=== PATIENT | male | born 1985 | race Caucasian/White ===

== ENCOUNTER 2019-04-08 16:27 | Emergency (ER) | payer BC ==
[2019-04-08] MEDS ORDERED: oxyCODONE TAB* 5 MG TAB PO ONE (21:18)
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
== END 2019-04-08 23:16 | disposition home or self-care (01) ==
LOC: ED 16:27
DX: M79.661 Pain in right lower leg (principal); M79.662 Pain in left lower leg; M25.572 Pain in left ankle and joints of left foot; M25.571 Pain in right ankle and joints of right foot
CPT/HCPCS: 99283; A9270-GY

== ENCOUNTER → 2019-04-20 16:54 | Day surgery (SDC) | payer BC ==
[~2019-04-20 16:54] MED LIST: Buffered Lidocaine 1% SYRIN* 1 ML/SYRINGE INTRADERM ONE; Bupivacaine 0.5%* 50 ML VIAL ONE; Dexamethasone IV* 4 MG/ML 1 ML (4 MG) IV SLOW PU ONE; Dexamethasone IV* 4 MG/ML 1 ML (4 MG) ONE; DiMENhydriNATE IV* 50 MG/ML VIAL IV PUSH PRN; Famotidine IV* 10 MG/ML 2 ML (20 mg) IV ONE; Famotidine IV* 10 MG/ML 2 ML (20 mg) ONE; HYDROcodone/ACETAMIN 5-325 MG* 1 TAB PO PRN; Lactated Ringers 1000 ML Bag* 1,000 ML IV SCH; Lidocaine 2% PF * 5 ML VIAL ONE; Midazolam* 1 MG/ML 5 ML VIAL (5 MG) ONE; Naloxone* 0.4 MG/ML 1 ML VIAL IV PRN; Ondansetron INJ* 2 MG/ML VIAL ONE; Propofol* 10 MG/ML 20 ML BTL ONE; Succinylcholine* 20 MG/ML 10 ML VIAL ONE; ceFAZolin 2 GM in NS PREMIX(*) 2 GM/100 ML BAG IVPB ONE; fentaNYL* 50 MCG/ML 2 ML VIAL (100 MCG VIAL) ONE; oxyCODONE/Acetamin 5/325 MG* TAB ONE; oxyCODONE/Acetamin 5/325 MG* TAB PO PRN
--- NOTE | 2019-04-20 19:09 | OP ---
Operative Report - Blank - Operative Report Date of Operation: 04/20/19 Note: PATIENT: Oscar Romeo DATE OF : 1985 DATE OF SURGERY: 04/20/2019 SURGEON: Keith Sagastume MD GROUP MARKET[employer] VP: ELZBIETA Auguste, whos assistance was necessary for positioning, retraction, help with instrumentation, and closure. ANESTHESIOLOGIST: Dr. Ramirez PREOPERATIVE DIAGNOSIS: Left Achilles tendon rupture. Right Achilles myotendinous rupture. POSTOPERATIVE DIAGNOSIS: Left Achilles tendon rupture. Right Achilles myotendinous rupture. OPERATION: Left Achilles tendon repair ANESTHESIA: General IMPLANTS: none TOURNIQUET TIME: Less than 60 minutes with a well-padded thigh tourniquet at 250mmHg SPECIMENS: none ESTIMATED BLOOD LOSS: minimal COMPLICATIONS: none STATUS: Stable from the operating room to the recovery room and then home. INDICATIONS FOR PROCEDURE: Oscar sustained bilateral Achilles tendon ruptures. The right side is a myotendinous rupture on exam and confirmed on MRI so we decided to treat this non-operatively. The left side is mid-substance of the tendon on exam and confirmed on ultrasound and MRI so we decided to treat this non-operatively. Both operative and non operative treatment alternatives were reviewed at length. Further, the nature and risks of surgery were reviewed in careful detail in the office as well as in the preoperative holding area. Our discussions regarding the risks of surgery included, but were not limited to, infection, wound problems, nerve injury, neuroma, RSD, persistent symptoms, blood clot, re-rupture or failure to heal, failure of the surgery, and even the remote chance of catastrophic complication, including loss of limb. DESCRIPTION OF PROCEDURE: The patient was seen in the preoperative holding unit and informed written consent was obtained. The appropriate extremity was marked. The patient was then brought to the operating room and carefully positioned on the operating room table. Anesthesia was induced. All bony prominences were padded with great care. A well-padded thigh tourniquet was placed. A chlorhexidine based pre- scrub was performed followed by a chloraprep prep and drape in standard sterile fashion. A surgical safety pause was then conducted in which we confirmed the appropriate patient, extremity, planned procedure, availability of equipment, indication and administration of prophylactic antibiotics, and DVT prophylaxis in the form of a compression boot on the non-surgical extremity. An Esmarch exsanguination of the left lower extremity was performed and the tourniquet was inflated. I then began by making a 3 cm incision slightly posteromedial overlying the Achilles tendon. I carried the dissection down through the soft tissue and exposed the peritenon. I then came through this sharply in line with the Achilles. I exposed the Achilles tendon, which was completely ruptured. We irrigated out hematoma. At this point, I utilized an Allis clamp to pull the proximal segment distally and passed a malleable between the tendon and the peritenon posteriorly. This mobilized the proximal segment back to its proper location. I then passed a bent ringed forceps within the peritenon around the tendon proximally. We used a Praneeth needle to pass #2 Fiberwire through the skin and then through the forceps, Achilles, and then through the other side. By pulling the forceps back out of the wound, we brought the suture out through the wound having been passed through the tendon. We repeated this two additional times, moving approximately 1 cm distally through the proximal segment. We similarly used the bent forceps to pass 3 strands of #2 Fiberwire through the distal segment. These sutures all had excellent purchase on the tendon. At this point, we placed a bump underneath the dorsum of the left foot to plantarflex the ankle. We then tied the sutures together, positioning the knot away from the skin edges. This nicely reapproximated the tendon ends with resting tension of the Achilles similar to the contralateral extremity, which had been assessed prior to prepping and draping. There was a restored Swenson test. We then irrigated copiously. We closed in layers meticulously utilizing 3-0 Monocryl for the peritenon layer, 3-0 Monocryl for the subdermal layer, and 3-0 nylon for the skin. A sterile dressing was then applied followed by a splint with the ankle in resting equinus position. The patient was then awakened from anesthesia and transferred to the recovery room in stable condition. There were no complications. All needle and sponge counts were correct at the end of the case. ATTESTATION: I attest I was present and scrubbed and performed the critical portions of the procedure myself. POSTOPERATIVE PLAN: The patient will remain [id number] for two weeks and follow up in two weeks for likely suture removal and Steri-Strip application. We will then progress via my postoperative protocol. He will restart Eliquis tomorrow morning.
[2019-04-20] MEDS: fentaNYL* 50 MCG/ML 2 ML VIAL (100 MCG VIAL) IV PRN ×3 (19:29→20:07)
[2019-04-20 20:46] VITALS: BP 119/76
== END | disposition home or self-care (01) ==
LOC: OR 16:54
PROVIDERS: ATTEND Orthopaedic Surgery
DX: S86.012A Strain of left Achilles tendon, initial encounter (principal); S86.011A Strain of right Achilles tendon, initial encounter; V28.0XXA Motorcycle driver injured in noncollision transport accident in nontraffic accident, initial encounter; Y93.89 Activity, other specified; Y92.9 Unspecified place or not applicable
CPT/HCPCS: A9270-GY; J0330; J0690; J1100; J2250; J2405; J2704; J3010; J3490